=== PATIENT | male | born 1970 | race Caucasian/White ===

== ENCOUNTER 2016-06-08 10:37 | Emergency (ER) | payer MEDICAID ==
[~2016-06-08] VITALS: Ht 160 cm; Wt 78.7 kg
[2016-06-08 12:09] VITALS: BP 127/82
== END 2016-06-08 12:09 | disposition home or self-care (01) ==
LOC: ED 10:37
DX: S11.81XD Laceration without foreign body of other specified part of neck, subsequent encounter (principal); E78.00 Pure hypercholesterolemia, unspecified; X58.XXXD Exposure to other specified factors, subsequent encounter; Y92.89 Other specified places as the place of occurrence of the external cause; Y99.8 Other external cause status